=== PATIENT | female | born 1970 | race Caucasian/White ===

== ENCOUNTER 2019-11-28 15:00 | Emergency (ER) | payer MEDICAID ==
[~2019-11-28] VITALS: Ht 160 cm; Wt 63.5 kg
[~2019-11-28 15:00] MED LIST: FLOR250 PO; LEVO5SOL4 IV; METF500T PO; OMEP40EC24 PO
--- NOTE | 2019-11-28 15:00 | NUR ---
SALINAS MCBRIDE ALS TO ER BED 07 AT 1454. RN EVALUATING AT BEDSIDE.
[2019-11-28] MEDS ORDERED: NACL 0.9% 1,000 ML IV ONE (15:13)
[2019-11-28] MEDS ORDERED: MORPHINE SULFATE 4 MG/ML SYR IVP ONE (15:15)
[2019-11-28] MEDS ORDERED: ONDANSETRON 4 MG/2 ML VIAL IVP ONE (15:15)
[2019-11-28 15:33] LABS: BASOPHILS # (AUTO) 0.1 K/uL (0.00-0.22); BASOPHILS % (AUTO) 0.6 % (0.0-2.0); EOSINOPHILS # (AUTO) 0.1 K/uL (0-0.4); EOSINOPHILS % (AUTO) 0.6 % (0.0-4.0); HEMATOCRIT 36.2 % (36-48); HEMOGLOBIN 12.3 g/dL (12.0-16.0); LYMPHOCYTES # (AUTO) 1.6 K/uL (2.5-16.5); LYMPHOCYTES % (AUTO) 17.2 % (20.5-51.1); MEAN CORPUSCULAR HEMOGLOBIN 30 pg (27-31); MEAN CORPUSCULAR HGB CONC 34 g/dL (33-37); MEAN CORPUSCULAR VOLUME 87.7 fL (80-94); MONOCYTES # (AUTO) 0.3 K/uL (0.8-1.0); MONOCYTES % (AUTO) 3.6 % (1.7-9.3); NEUTROPHILS # (AUTO) 7.4 K/uL (1.8-7.7); PLATELET COUNT (AUTO) 249 K/uL (140-450); RED BLOOD CELL COUNT(AUTO) 4.13 MIL/uL (4.20-5.40); RED CELL DISTRIBUTION WIDTH 13.1 % (11.6-13.7); WHITE BLOOD COUNT (AUTO) 9.5 K/uL (4.8-10.8)
[2019-11-28 15:48] LABS: ALBUMIN 3.8 g/dL (3.4-5.0); ANION GAP 21.1 (8-16); CARBON DIOXIDE 20.3 mmol/L (21-32); CREATININE 0.9 mg/dL (0.6-1.3); POTASSIUM 3.4 mmol/L (3.5-5.1); TOTAL BILIRUBIN 0.9 mg/dL (0.0-1.0)
[2019-11-28 16:04] VITALS: BP 116/58
--- NOTE | 2019-11-28 16:08 | NUR ---
PT TO CT SCAN VIA WHEELCHAIR.
--- NOTE | 2019-11-28 16:10 | NUR ---
BIBA FROM HOME BLS C/O ABDOMINAL PAIN 11/25 , DENIES N/V . PT AOX 4 , AFIBRILE , AMBULATORY WITH STEADY GAIT, SCE , CBS , FLAT SOFT ABDOMEN. PMHSX DM
[2019-11-28 16:49] LABS: APPEARANCE,URINE CLEAR (CLEAR); COLOR,URINE YELLOW (YELLOW)
[2019-11-28 16:50] LABS: BILIRUBIN,URINE NEGATIVE (NEGATIVE); BLOOD, URINE 3+ (NEGATIVE); LEUKOCYTE ESTERASE ,URINE NEGATIVE (NEGATIVE); NITRITE, URINE NEGATIVE (NEGATIVE); PH,URINE 5.5 (5.0-9.0); UGLUCOSE 1+ (NEGATIVE)
[2019-11-28 17:04] LABS: RBC,URINE 50-80 /HPF (0-5)
[2019-11-28 17:05] LABS: WBC,URINE 0-5 /HPF (0-5); YEAST,URINE Rare /HPF (None Seen)
[2019-11-28 17:13] VITALS: BP 116/58
--- NOTE | 2019-11-28 17:17 | NUR ---
Patient discharged with v/s stable. Written and verbal after care instructions given and explained regarding ventral hernia. Patient alert, oriented and verbalized understanding of instructions. Ambulatory with steady gait. All questions addressed prior to discharge. ID band removed. Patient advised to follow up with PMD. Rx of bentyl given. Patient educated on indication of medication including possible reaction and side effects. Opportunity to ask questions provided and answered.
== END 2019-11-28 17:17 | disposition home or self-care (01) ==
LOC: MED 15:00
DX: K43.9 Ventral hernia without obstruction or gangrene (principal); E11.9 Type 2 diabetes mellitus without complications; I10 Essential (primary) hypertension; Z90.49 Acquired absence of other specified parts of digestive tract; Z79.84 Long term (current) use of oral hypoglycemic drugs; Z79.899 Other long term (current) drug therapy; Z88.5 Allergy status to narcotic agent
CPT/HCPCS: 36415; 74176; 80053; 81001; 81025; 83690; 85025; 96374; 96375; 99284; J2270; J2405; J7030

== ENCOUNTER 2020-02-15 08:32 | Emergency (ER) | payer MEDICAID ==
[~2020-02-15] VITALS: Ht 162.6 cm; Wt 89.8 kg
[2020-02-15 08:37] VITALS: BP 142/88
--- NOTE | 2020-02-15 08:48 | NUR ---
C/O RASH AND BURNING AT INCISION SITE WHERE HERNIA REPAIR WAS PERFORMED ONE MONTH AGO. PATIENT DENIES ANY N/V/D, ABD PAIN. PT AOX 4 AFIBRILE , AMBULATORY WITH STEADY GAIT , SCE , ROUND SOFT ABDOMEN WITH SOME RASHES ON PREVIOUS OPERATION SCAR. PMH: DM ALLERGIES: MORPHINE
--- NOTE | 2020-02-15 09:00 | NUR ---
DR MARIEE AT BEDSIDE EVALUATING PT.
[2020-02-15] MEDS ORDERED: PANTOPRAZOLE 40 MG INJ VIAL IVP ONE (09:10)
[2020-02-15] MEDS ORDERED: ALUMINUM HYD/MAG/SIMETHICONE 30 ML UDC PO ONE (09:10)
[2020-02-15] MEDS ORDERED: NACL 0.9% 500 ML IV ONE (09:10)
[2020-02-15] MEDS ORDERED: DICYCLOMINE HCL LIQUID 10 MG/5 ML UDC PO ONE (09:10)
[2020-02-15] MEDS ORDERED: KETOROLAC 30 MG/ML VIAL IVP ONE (09:10)
[2020-02-15] MEDS ORDERED: LIDOCAINE VISCOUS 2% 20 ML UDC PO ONE (09:10)
--- NOTE | 2020-02-15 09:16 | NUR ---
[facility]
--- NOTE | 2020-02-15 09:20 | NUR ---
PT BACK FROM CT SCAN.
--- NOTE | 2020-02-15 09:38 | NUR ---
BLOOD COLLECTED SEND TO LABS
[2020-02-15 09:58] LABS: BASOPHILS % (AUTO) 0.4 % (0.0-2.0); EOSINOPHILS # (AUTO) 0.2 K/uL (0-0.4); EOSINOPHILS % (AUTO) 2.8 % (0.0-4.0); HEMATOCRIT 34.6 % (36-48); HEMOGLOBIN 11.7 g/dL (12.0-16.0); LYMPHOCYTES # (AUTO) 1.9 K/uL (2.5-16.5); LYMPHOCYTES % (AUTO) 29.5 % (20.5-51.1); MEAN CORPUSCULAR HEMOGLOBIN 29 pg (27-31); MEAN CORPUSCULAR HGB CONC 34 g/dL (33-37); MEAN CORPUSCULAR VOLUME 85.3 fL (80-94); MONOCYTES # (AUTO) 0.3 K/uL (0.8-1.0); MONOCYTES % (AUTO) 5.1 % (1.7-9.3); NEUTROPHILS # (AUTO) 4.1 K/uL (1.8-7.7); NEUTROPHILS % (AUTO) 62.2 % (42.2-75.2); PLATELET COUNT (AUTO) 251 K/uL (140-450); RED BLOOD CELL COUNT(AUTO) 4.06 MIL/uL (4.20-5.40); WHITE BLOOD COUNT (AUTO) 6.6 K/uL (4.8-10.8)
[2020-02-15 10:16] LABS: ANION GAP 15.7 (8-16); CARBON DIOXIDE 25.6 mmol/L (21-32); CREATININE 0.8 mg/dL (0.6-1.3); POTASSIUM 4.3 mmol/L (3.5-5.1)
[2020-02-15 10:29] LABS: ALBUMIN 3.8 g/dL (3.4-5.0); TOTAL BILIRUBIN 0.6 mg/dL (0.0-1.0)
--- NOTE | 2020-02-15 10:30 | NUR ---
PT AMBULATED TO RESTROOM
--- NOTE | 2020-02-15 10:48 | NUR ---
DR MARIEE AT BEDSIDE REEVALUATING PT.
[2020-02-15 10:57] VITALS: BP 142/88
--- NOTE | 2020-02-15 10:58 | NUR ---
Patient discharged with v/s stable. Written and verbal after care instructions given and explained regarding gastritis . Patient alert, oriented and verbalized understanding of instructions. Ambulatory with steady gait. All questions addressed prior to discharge. ID band removed. Patient advised to follow up with PMD. Rx of protonix and tramadol given. Patient educated on indication of medication including possible reaction and side effects. Opportunity to ask questions provided and answered.
== END 2020-02-15 10:58 | disposition home or self-care (01) ==
LOC: MED 08:32
DX: K29.70 Gastritis, unspecified, without bleeding (principal); K43.9 Ventral hernia without obstruction or gangrene; E11.65 Type 2 diabetes mellitus with hyperglycemia; I10 Essential (primary) hypertension; Z88.6 Allergy status to analgesic agent; Z79.899 Other long term (current) drug therapy
CPT/HCPCS: 36415; 74176; 80053; 85025; 96361; 96374; 96375; 99284; C9113; J1885; J7030

== ENCOUNTER 2021-03-15 11:35 | Emergency (ER) | payer MEDICAID ==
[~2021-03-15] VITALS: Ht 160 cm; Wt 95.3 kg
[2021-03-15 12:13] VITALS: BP 151/76
--- NOTE | 2021-03-15 12:57 | NUR ---
50 y/o female from home c/o mid abd pain that radiates to lower back x 3 days. pt states intermittent pain for 3 months, worsening last 3 days. + nausea, denies vomiting/diarrhea. Abd round, soft, nontender to palpation. Awake and alert. States 10/10 pain. Bed locked and in lowest position. medhx: DM, HTN
[2021-03-15] MEDS ORDERED: ONDANSETRON 4 MG ODT PO ONE (13:10)
[2021-03-15] MEDS ORDERED: KETOROLAC 60 MG/2 ML VIAL IM ONE (13:10)
[2021-03-15] MEDS ORDERED: DICYCLOMINE HCL LIQUID 10 MG/5 ML UDC PO ONE (13:10)
--- NOTE | 2021-03-15 13:29 | NUR ---
PATIENT TAKEN TO XRAY VIA WHEELCHAIR
[2021-03-15 13:39] LABS: BASOPHILS % (AUTO) 0.3 % (0.0-2.0); EOSINOPHILS # (AUTO) 0.1 K/uL (0-0.4); EOSINOPHILS % (AUTO) 0.9 % (0.0-4.0); HEMATOCRIT 35.8 % (36-48); HEMOGLOBIN 12.3 g/dL (12.0-16.0); LYMPHOCYTES # (AUTO) 1.7 K/uL (2.5-16.5); LYMPHOCYTES % (AUTO) 18.3 % (20.5-51.1); MEAN CORPUSCULAR HEMOGLOBIN 30 pg (27-31); MEAN CORPUSCULAR HGB CONC 34 g/dL (33-37); MEAN CORPUSCULAR VOLUME 87.8 fL (80-94); MONOCYTES # (AUTO) 0.5 K/uL (0.8-1.0); MONOCYTES % (AUTO) 4.9 % (1.7-9.3); NEUTROPHILS # (AUTO) 7.1 K/uL (1.8-7.7); NEUTROPHILS % (AUTO) 75.6 % (42.2-75.2); PLATELET COUNT (AUTO) 230 K/uL (140-450); RED BLOOD CELL COUNT(AUTO) 4.08 MIL/uL (4.20-5.40); RED CELL DISTRIBUTION WIDTH 12.8 % (11.6-13.7); WHITE BLOOD COUNT (AUTO) 9.4 K/uL (4.8-10.8)
[2021-03-15 13:55] LABS: BILIRUBIN,URINE NEGATIVE (NEGATIVE); BLOOD, URINE NEGATIVE (NEGATIVE); COLOR,URINE YELLOW (YELLOW); LEUKOCYTE ESTERASE ,URINE NEGATIVE (NEGATIVE); NITRITE, URINE NEGATIVE (NEGATIVE); UGLUCOSE 3+ (NEGATIVE)
[2021-03-15 13:58] LABS: APPEARANCE,URINE SLIGHTLY HAZY (CLEAR); RBC,URINE 0-5 /HPF (0-5); WBC,URINE 0-5 /HPF (0-5)
[2021-03-15 14:10] LABS: ALBUMIN 3.4 g/dL (3.4-5.0); ANION GAP 14.8 (8-16); CARBON DIOXIDE 24.2 mmol/L (21-32); CREATININE 0.7 mg/dL (0.6-1.3); TOTAL BILIRUBIN 1.1 mg/dL (0.0-1.0)
[2021-03-15] MEDS ORDERED: IBUP-2213 PO (14:38)
[2021-03-15] MEDS ORDERED: BEN10 PO (14:38)
[2021-03-15] MEDS ORDERED: ONDA-188 SL (14:38)
[2021-03-15 14:40] VITALS: BP 142/71
--- NOTE | 2021-03-15 14:43 | NUR ---
Patient discharged with v/s stable. Written and verbal after care instructions given and explained. Patient alert, oriented and verbalized understanding of instructions. Ambulatory with steady gait. All questions addressed prior to discharge. ID band removed. Patient advised to follow up with PMD. Rx of Dicyclomine Hydrochloride, Ibuprofen, Ondansetron given. Patient educated on indication of medication including possible reaction and side effects. Opportunity to ask questions provided and answered.
== END 2021-03-15 14:43 | disposition home or self-care (01) ==
LOC: MED 11:35
DX: M54.50 Low back pain, unspecified (principal); R10.9 Unspecified abdominal pain; E11.9 Type 2 diabetes mellitus without complications; I10 Essential (primary) hypertension; Z90.49 Acquired absence of other specified parts of digestive tract; Z98.890 Other specified postprocedural states; Z79.84 Long term (current) use of oral hypoglycemic drugs; Z79.899 Other long term (current) drug therapy; Z88.5 Allergy status to narcotic agent
CPT/HCPCS: 36415; 74022; 80053; 81001; 83690; 85025; 96372; 99284; J1885; Q0162

== ENCOUNTER 2022-09-19 08:25 | Emergency (ER) | payer MEDICAID, OTHER ==
[~2022-09-19] VITALS: Ht 154.9 cm; Wt 85.7 kg
[~2022-09-19 08:25] MED LIST changes: +BEN10 PO; +IBUP-2213 PO; +METF-346 PO; -METF500T PO; +ONDA-188 SL
[2022-09-19 08:32] VITALS: BP 110/81
[2022-09-19] MEDS ORDERED: methocarbamoL 500 MG TAB PO STA (08:53)
[2022-09-19] MEDS ORDERED: ACETAMINOPHEN 325 MG TAB PO ONE (08:55)
[2022-09-19] MEDS ORDERED: LIDOCAINE 5% 1 EA PATCH TP ONE (08:55)
[2022-09-19 09:28] LABS: BASOPHILS # (AUTO) 0.1 K/uL (0.00-0.22); BASOPHILS % (AUTO) 0.7 % (0.0-2.0); EOSINOPHILS # (AUTO) 0.2 K/uL (0-0.4); EOSINOPHILS % (AUTO) 1.9 % (0.0-4.0); HEMATOCRIT 36.5 % (36-48); HEMOGLOBIN 12.9 g/dL (12.0-16.0); LYMPHOCYTES # (AUTO) 2.5 K/uL (2.5-16.5); LYMPHOCYTES % (AUTO) 27.9 % (20.5-51.1); MEAN CORPUSCULAR HEMOGLOBIN 30 pg (27-31); MEAN CORPUSCULAR HGB CONC 35 g/dL (33-37); MEAN CORPUSCULAR VOLUME 84.2 fL (80-94); MONOCYTES # (AUTO) 0.5 K/uL (0.8-1.0); MONOCYTES % (AUTO) 5.3 % (1.7-9.3); NEUTROPHILS # (AUTO) 5.9 K/uL (1.8-7.7); NEUTROPHILS % (AUTO) 64.2 % (42.2-75.2); PLATELET COUNT (AUTO) 275 K/uL (140-450); RED BLOOD CELL COUNT(AUTO) 4.34 MIL/uL (4.20-5.40); RED CELL DISTRIBUTION WIDTH 12.9 % (11.6-13.7); WHITE BLOOD COUNT (AUTO) 9.1 K/uL (4.8-10.8)
[2022-09-19 09:52] LABS: ALBUMIN 3.5 g/dL (3.4-5.0); ANION GAP 12.2 (8-16); CARBON DIOXIDE 28.1 mmol/L (21-32); CREATININE 0.8 mg/dL (0.6-1.3); POTASSIUM 4.3 mmol/L (3.5-5.1)
[2022-09-19] MEDS ORDERED: ACET-10509 PO (10:04)
[2022-09-19] MEDS ORDERED: LID5T TP (10:04)
[2022-09-19 10:30] VITALS: BP 110/81
--- NOTE | 2022-09-19 10:30 | NUR ---
Patient discharged with v/s stable. Written and verbal after care instructions given and explained. Patient alert, oriented and verbalized understanding of instructions. Ambulatory with steady gait. All questions addressed prior to discharge. ID band removed. Patient advised to follow up with PMD. Rx of LIDODERM given. Patient educated on indication of medication including possible reaction and side effects. Opportunity to ask questions provided and answered.
== END 2022-09-19 10:30 | disposition home or self-care (01) ==
LOC: MED 08:25
DX: M54.6 Pain in thoracic spine (principal); M79.18 Myalgia, other site; E11.9 Type 2 diabetes mellitus without complications; I10 Essential (primary) hypertension; Z90.49 Acquired absence of other specified parts of digestive tract; Z98.890 Other specified postprocedural states; Z79.899 Other long term (current) drug therapy; Z79.1 Long term (current) use of non-steroidal anti-inflammatories (NSAID); Z79.2 Long term (current) use of antibiotics; Z88.5 Allergy status to narcotic agent
CPT/HCPCS: 36415; 80053; 82550; 85025; 99284